=== PATIENT | female | born 1970 | race Caucasian/White ===

== ENCOUNTER 2022-05-11 15:11 | Inpatient (IN) | payer OTHER ==
[~2022-05-11] VITALS: Ht 160 cm; Wt 73.5 kg
[2022-05-11 15:47] LABS: RED BLOOD COUNT 4.49 M/UL (4.00-5.10); WHITE BLOOD COUNT 9.9 K/UL (4.5-11.0)
[2022-05-11 16:13] LABS: BUN/CREATININE RATIO 25 (0-10)
[2022-05-12 07:01] LABS: BUN/CREATININE RATIO 29 (0-10)
[2022-05-12 07:02] LABS: HEMOGLOBIN 12.6 gm/dl (12.3-15.3); WHITE BLOOD COUNT 11.2 K/UL (4.5-11.0)
[2022-05-12 07:12] LABS: RED BLOOD COUNT 4.04 M/UL (4.00-5.10)
[2022-05-12] MEDS ORDERED: HYDROCODON-ACE1 EAC6 PO (12:26)
[2022-05-12] MEDS ORDERED: GABAPENTIN600 MG PO (12:26)
[2022-05-12] MEDS ORDERED: THEOPHYLLINE A300 MG PO (12:27)
[2022-05-12] MEDS ORDERED: FUROSEMIDE20 MG PO (12:27)
[2022-05-12] MEDS ORDERED: CLONAZEPAM1 MG PO (12:28)
[2022-05-12] MEDS ORDERED: ALBUTEROL1.25 MG/3 INH (12:28)
[2022-05-12] MEDS ORDERED: COMBIVENT RESPIM4 GM INH (12:29)
--- NOTE | 2022-05-13 05:02 | NUR ---
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
[2022-05-13 06:20] LABS: HEMOGLOBIN 12.2 gm/dl (12.3-15.3); RED BLOOD COUNT 3.87 M/UL (4.00-5.10); WHITE BLOOD COUNT 12.7 K/UL (4.5-11.0)
[2022-05-13 06:41] LABS: BUN/CREATININE RATIO 27 (0-10)
[2022-05-13] MEDS ORDERED: PREDNISONE 20 M20 MG PO (13:46)
[2022-05-13] MEDS ORDERED: DOXYCYCLINE HY100 M2 PO (13:46)
[2022-05-13] MEDS ORDERED: IPRAT-ALBUT 0.5-3 ML NEB (13:46)
== END 2022-05-13 15:02 | disposition home or self-care (01) | DRG 193 ==
LOC: ER1 15:11 → CDU 18:09 → MED SURG 4 18:09
PROVIDERS: Emergency Medicine; Internal Medicine; ADMIT Internal Medicine
DX: J18.9 Pneumonia, unspecified organism (principal); J96.21 Acute and chronic respiratory failure with hypoxia; Z20.822 Contact with and (suspected) exposure to COVID-19; J96.22 Acute and chronic respiratory failure with hypercapnia; R65.10 Systemic inflammatory response syndrome (SIRS) of non-infectious origin without acute organ dysfunction; J43.9 Emphysema, unspecified; G89.29 Other chronic pain; M54.89 Other dorsalgia; Z87.891 Personal history of nicotine dependence; Z82.49 Family history of ischemic heart disease and other diseases of the circulatory system; Z99.81 Dependence on supplemental oxygen
CPT/HCPCS: 36415; 36600; 71045; 71250; 80048; 80053; 81001; 82550; 82553; 82803; 83605; 83735; 83880; 84484; 85025; 87040; 87070; 87086; 87205; 93005; 94640; 94664; 94760; 96372; 96374; 99285; J0692; J1650; U0002